=== PATIENT | male | born 1985 | race Two or more races ===

== ENCOUNTER 2016-12-14 13:20 | Emergency (ER) | payer BC ==
--- OUTSIDE RECORDS SUMMARY | 2016-12-14 13:45 | XMS REPORT | Continuity of Care Document ---
:1985 Author Organization [facility] [place] [address] Care Team Providers Name Role Phone Joni Hall Primary Care Provider [phone] Source Comments This disclosure is being made pursuant to the [employer] program and maynot contain all information available regarding this patient.[facility] Active Allergies and Adverse Reactions No Known Allergies Current Medications Be aware that medications may not be up to date as of this document. Alwaysverify current medications with the patient. Prescription Sig. Disp. Refills Start Date End Date Status cyclobenzaprine Take 1 tablet by 15 tablet 0 02/23/2015 Active (FLEXERIL) 5 MG tablet mouth 2 (two) times daily as needed for Muscle spasms. ibuprofen (ADVIL,MOTRIN) Take 1 tablet by 30 tablet 0 02/23/2015 Active 800 MG tablet mouth every 6 (six) hours as needed for Pain. predniSONE (DELTASONE) Take three times 12 tablet 0 02/23/2015 Active 20 MG tablet daily x 2 days, Take twice daily x 2 days, Take once daily x 2 days HYDROcodone-acetaminophe Take 1-2 tablets 30 tablet 0 02/24/2015 Active n (NORCO) 5-325 MG per by mouth every 6 tablet (six) hours as needed for Pain. ondansetron (ZOFRAN-ODT) Take 1 tablet by 8 tablet 0 02/24/2015 Active 8 MG disintegrating mouth every 6 tablet (six) hours as needed for Nausea. Active Problems Not on file Social History Tobacco Use Types Packs/Day Years Used Date Current Every Day Smoker Cigarettes 0.75 Alcohol Use Drinks/Week oz/Week Comments No Last Filed Vital Signs Vital Sign Reading Time Taken Blood Pressure 157/97 02/24/2015 7:36 AM CDT Pulse 97 02/24/2015 7:36 AM CDT Temperature 36.7 C (98 F) 02/24/2015 7:36 AM CDT Respiratory Rate 16 02/24/2015 7:36 AM CDT Height 1.854 m (6' 1") 02/24/2015 7:36 AM CDT Weight 94.1 kg (207 lb 7.3 oz) 02/24/2015 7:36 AM CDT Body Mass Index 27.38 02/24/2015 7:36 AM CDT Oxygen Saturation 99% 02/24/2015 7:36 AM CDT Plan of Care Health Maintenance Due Date Last Done Comments Tetanus/Pertussis (1 - Tdap) 2002 Retired-INFLUENZA VACCINE 04/20/2016 Results from Last 3 Months Not on file
[2016-12-14] MEDS ORDERED: KETOROLAC TROMETHAMINE 60 MG/2 ML VIAL IM ONE ×2 (13:51→13:56)
[2016-12-14 14:39] VITALS: BP 136/86
--- NOTE | 2016-12-14 14:40 | ERNOTE ---
Lower Extremity HPI - General Time Seen by Provider: 12/14/16 13:40 - Immun/Allergies/Home Medications Immunizations: IMMUNIZATION HX Immunizations Up to Date Yes History of Influenza Vaccine No Hx Pneumococcal Vaccination No Allergies/Adverse Reactions: Allergies Allergy/AdvReac Type Severity Reaction Status Date / Time No Known Allergies Allergy Verified 12/14/16 13:39 Home Medications: HOME MEDICATIONS traMADol HCL [Ultram] 50 - 100 mg PO QID PRN #100 tab 04/17/15 [Last Taken Unknown] Naproxen [Naprosyn] 500 mg PO DAILY 12/14/16 [Last Taken Unknown] - Patient's Past Medical History Patient History - Medical: Other Patient History - Cardiac/Respiratory: No pertinent hx Patient History - Cancer: No Hx of Cancer Patient History - Surgical Procedures: Other Patient History - Other: None - Social History Living Situations: home Psych History: No pertinent hx Alcohol Use: none Drug Use: none - Immunizations Immunizations Up to Date: Yes Hx Pneumococcal Vaccination: No History of Influenza Vaccine: No ED Progress - Vital Signs Vital Signs: Vital Signs 12/14/16 13:36 Temperature 36.9 C Pulse Rate 111 H Respiratory 12 Rate Blood Pressure 166/92 O2 Sat by Pulse 98 Oximetry - X-Ray X-Ray #1 X-Ray: knee Interpretation: Reviewed by me X-ray Comments: Comparison:None. Findings: No acute fracture or dislocation. Alignment is anatomic. Mineralization is normal. Minimal spurring at the superior and inferior patellar poles. No destructive osseous lesions. Small suprapatellar joint effusion. There is mild soft tissue thickening in the region of the inferior patellar tendon, which may represent postsurgical change and/or sequela of tendinosis. Soft tissues are otherwise unremarkable. Impression: No acute osseous findings. Additional findings and comments are as above. Electronically signed by Srikanth Marie D.O.. - Progress/Reassessment Chief Complaint: Lower Extremity Pain/ Injury Progress:: Improved Departure Clinical Impression: Knee pain, acute Qualifiers: Laterality: right Qualified Code(s): M25.561 - Pain in right knee - Departure Disposition: Home Follow Up Needed Condition: Stable Instructions: Knee Pain, Knee Sprain, [id number], Form - Excuse from Work, School, or Physical Activity Additional Instructions: Continue home medications as directed he may take her home medications and over- the-counter pain medications as needed. Follow up with her primary care provider on Sunday. Return to the emergency room if pain is unable to be controlled with [id number] and your prescribed pain medication. Referrals: Jian Babin MD [Primary Care Provider] -
== END 2016-12-14 14:43 | disposition home or self-care (01) ==
LOC: ER 13:20
DX: M25.561 Pain in right knee (principal); W01.0XXA Fall on same level from slipping, tripping and stumbling without subsequent striking against object, initial encounter; Y93.9 Activity, unspecified; Y92.008 Other place in unspecified non-institutional (private) residence as the place of occurrence of the external cause